=== PATIENT | female | born 2000 | race Caucasian/White ===

== ENCOUNTER 2019-02-21 20:15 | Emergency (ER) | payer BC ==
--- NOTE | 2019-02-21 22:53 | ER Document Report ---
ED General - General Chief Complaint: Abdominal Pain Stated Complaint: STOMACH PAIN Time Seen by Provider: 02/21/19 22:46 Mode of Arrival: Ambulatory Information source: Patient, Relative Notes: 19-year-old female with history of constipation presents with left lower quadrant abdominal pain that started 1 day prior to arrival. Patient describes the pain is intermittent, sharp, cramping. Patient denies any associated fever, chills, nausea, vomiting, dysuria, urinary frequency, hematuria, vaginal discharge. Patient reports that she took a laxative yesterday and had a bowel movement which she states was nonbloody or black. Patient's last menstrual period was January 27, 2019. She does currently take control pill. - HPI Onset: Yesterday Onset/Duration: Gradual, Persistent Quality of pain: Achy, Sharp Severity: Mild Pain Level: 1 Associated symptoms: denies: Chest pain, Nonproductive cough, Productive cough, Fever, Nausea, Vomiting, Shortness of breath Exacerbated by: Denies Relieved by: Denies Similar symptoms previously: Yes Recently seen / treated by doctor: No - Related Data Allergies/Adverse Reactions: No Known Allergies Allergy (Unverified 02/21/19 20:23) Past Medical History - General Information source: Patient - Social History Smoking Status: Never Smoker Frequency of alcohol use: None Drug Abuse: None Lives with: Spouse/Significant other Family History: Reviewed & Not Pertinent Patient has suicidal ideation: No Patient has homicidal ideation: No - Medical History Medical History: Negative Renal/ Medical History: Denies: Hx Peritoneal Dialysis Past Surgical History: Reports: Hx Tonsillectomy Review of Systems - Review of Systems Notes: REVIEW OF SYSTEMS: CONSTITUTIONAL : Denies fever, chills, or sweats. Denies recent illness. Denies weight loss, recent hospitalizations. EENT: Denies visual changes, eye pain. Denies sore throat, oral lesions, difficulty swallowing. CARDIOVASCULAR: Denies chest pain. Denies palpitations. Denies lower extremity edema. RESPIRATORY: Denies cough. Denies shortness of breath, wheezing. GASTROINTESTINAL: + abdominal pain denies distention. Denies nausea, vomiting, or diarrhea. Denies blood in vomitus, stools, or per rectum. Denies black, tarry stools. + constipation. GENITOURINARY: Denies difficulty urinating, painful urination, frequency, blood in urine, or vaginal discharge. MUSCULOSKELETAL: Denies back or neck pain or stiffness. Denies joint pain or swelling. SKIN: Denies rash, lesions or sores. HEMATOLOGIC : Denies easy bruising or bleeding. LYMPHATIC: Denies swollen glands. NEUROLOGICAL: Denies confusion or altered mental status. Denies loss of consciousness. Denies dizziness or lightheadedness. Denies headache. Denies weakness or paralysis. Denies problems difficulty with ambulation, slurred speech. Denies sensory loss, numbness, or tingling. Denies seizures. PSYCHIATRIC: Denies anxiety or stress. Denies depression, suicidal ideation, or homicidal ideation. Denies visual or auditory hallucinations. Physical Exam - Vital signs Vitals: Temp Pulse Resp BP Pulse Ox 98.1 F 100 18 123/85 98 02/21/19 20:34 02/21/19 20:34 02/21/19 20:34 02/21/19 20:34 02/21/19 20:34 - Notes Notes: PHYSICAL EXAMINATION: GENERAL: Well-appearing, well-nourished and in no acute distress. HEAD: Atraumatic, normocephalic. EYES: Pupils equal round and reactive to light, extraocular movements intact, conjunctiva are normal. ENT: Nares patent, oropharynx clear without exudates. Moist mucous membranes. NECK: Normal range of motion, supple without lymphadenopathy LUNGS: Breath sounds clear to auscultation bilaterally and equal. No wheezes rales or rhonchi. HEART: Regular rate and rhythm without murmurs ABDOMEN: Soft, nontender, nondistended abdomen. No guarding, no rebound. No masses appreciated. Female : deferred Musculoskeletal: Normal range of motion, no pitting or edema. No cyanosis. NEUROLOGICAL: Cranial nerves grossly intact. Normal speech, normal gait. Normal sensory, motor exams PSYCH: Normal mood, normal affect. SKIN: Warm, Dry, normal turgor, no rashes or lesions noted. Course - Re-evaluation Re-evalutation: Temp Pulse Resp BP Pulse Ox 98.1 F 100 18 123/85 98 02/21/19 20:34 02/21/19 20:34 02/21/19 20:34 02/21/19 20:34 02/21/19 20:02/21/19 22:52 19-year-old female presents with complaint of left lower quadrant abdominal pain that started 1 day prior to arrival. Vital signs reviewed and within normal limits. Patient is afebrile, normotensive and not hypoxic. Patient does not a ppear toxic or dehydrated. She is in no acute distress. Patient has a benign abdominal exam and pain is not reproducible with palpation. Because of the patient's history of constipation KUB was be obtained. 02/21/19 23:31 Patient presents with symptoms consistent with an acute cystitis. Vitals wnl. No history of fever, flank pain, or constitution symptoms to suggest ascending infection at this time. Patient is well in appearance, tolerating oral intake without difficulty. No focal abdominal tenderness to suggest acute appendicitis, biliary pathology, acute pancreatitis, tubo-ovarian abscesses, or pelvic inflammatory disease. Patient will be started on antibiotics at this time. A culture has been sent. They will be discharged with return precautions and follow-up recommendations. Presentation of a very well-appearing female in no acute distress. Abdominal exam is completely benign without any focal right lower quadrant or right upper quadrant abdominal tenderness. She is tolerating oral intake without difficulty and does not appear clinically dehydrated on examination. I do not suspect an acute appendicitis, bowel obstruction, diverticulitis. Patient provide a history consistent with constipation. Patient will be started on MiraLAX at increasing doses and recommended to follow closely with their primary care physician. Return precautions have been discussed at length with the patient Patient was evaluated and treated as appropriate for the patient's presenting sy mptoms and complaint, with consideration of any critical or life threatening conditions that may be associated with their obtained history and exam as noted above. All results were discussed with patient and her who is at the bedside. Patient provided the opportunity to ask questions, and express concerns. Patient was educated on treatments based on their presumed diagnosis as noted above. At this time we will discharge the patient with return precautions and follow-up recommendations. Verbal discharge instructions given a the bedside. Medication warnings reviewed. Patient is in agreement with this plan and has verbalized understanding of return precautions. After careful consideration I feel that that patient can be safely discharged from the emergency department, they were advised to followup with a primary care physician in 2-3 days. Dictation on this chart was performed using voice recognition software and may result in unintended grammatical, spelling, syntax or errors. . - Vital Signs Vital signs: Temp Pulse Resp BP Pulse Ox 98.1 F 100 18 123/85 98 07/28/19 20:34 02/21/19 20:34 02/21/19 20:34 02/21/19 20:34 02/21/19 20:34 - Laboratory Result Diagrams: 02/21/19 23:06 02/21/19 23:06 Laboratory results interpreted by me: 02/21/19 02/21/19 22:44 23:06 WBC 12.7 H Lymphocytes % 11.4 L Absolute Neutrophils 9.7 H Urine Protein 100 H Urine Blood MODERATE H Ur Leukocyte Esterase MODERATE H Discharge - Discharge Clinical Impression: Urinary tract infection Qualifiers: Urinary tract infection type: acute cystitis Hematuria presence: with hematuria Qualified Code(s): N30.01 - Acute cystitis with hematuria Constipation Qualifiers: Constipation type: unspecified constipation type Qualified Code(s): K59.00 - Constipation, unspecified Abdominal pain Qualifiers: Abdominal location: left lower quadrant Qualified Code(s): R10.32 - Left lower quadrant pain Condition: Good Disposition: HOME, SELF-CARE Instructions: Abdominal Pain ([facility]), Bulk Laxatives, Cephalexin ([facility]), Urinary Tract Infection ([facility]) Additional Instructions: Your urine shows findings consistent with a urinary tract infection. Please take all the antibiotics as directed even if your symptoms have improved. Please follow-up with your primary care physician as needed. Return to emergency room if you develop fever >101F, persistent vomiting, become lethargic, have severe pain in your sides, or any other symptoms that are concerning to you. Recommendations: It is recommended to followup with a primary care doctor within the next 2 days. If you do not have a primary care doctor or you are unable to get an apointment during that time, I left the number for some internal medicine physicians that are affiliated with this [facility]. Dr. Jasmyn Malcolm [address], [place] [address] [phone] Dr Kingsley Address: [address] [place] [address] [place] [address] Dr Anthony Address: [address] [place] [address] , [place] [id number] Prescriptions: Cephalexin Monohydrate [Keflex 500 mg Capsule] 500 mg PO BID 7 Days #14 capsule Na Phos,M-B/Na Phos,Di-Ba [Fleet Enema (Adult) 133 ml] 1 applic FL DAILYP PRN #5 enema PRN Reason:
[2019-02-21 23:07] LABS: AMORPHOUS SEDIMENT,URINE TRACE /HPF; APPEARANCE,URINE CLOUDY; BILIRUBIN,URINE NEGATIVE (NEGATIVE); COLOR,URINE YELLOW; GLUCOSE, URINE NEGATIVE (NEGATIVE); KETONES,URINE NEGATIVE (NEGATIVE); LEUKOCYTE ESTERASE,URINE MODERATE (NEGATIVE); NITRITE,URINE NEGATIVE (NEGATIVE); PROTEIN,URINE 100 mg/dL (NEGATIVE); URINE SPECIFIC GRAVITY 1.012; UROBILINOGEN,URINE NEGATIVE mg/dL (<2.0)
[2019-02-21 23:17] LABS: ABSOLUTE BASOPHILS # (AUTO) 0.1 10^3/uL (0.0-0.2); ABSOLUTE LYMPHOCYTES (AUTO) 1.4 10^3/uL (0.5-4.7); ABSOLUTE MONOCYTES (AUTO) 1.4 10^3/uL (0.1-1.4); ABSOLUTE NEUT (AUTO) 9.7 10^3/uL (1.7-8.2); BASOPHILS % (AUTO) 0.5 % (0-2); EOSINOPHILS % (AUTO) 0.2 % (0-6); HEMATOCRIT 41.2 % (36.0-47.0); LYMPHOCYTES % (AUTO) 11.4 % (13-45); MEAN CORPUSCULAR HEMOGLOBIN 30.5 pg (27.0-33.4); MEAN CORPUSCULAR VOLUME 90 fl (80-97); MONOCYTES % (AUTO) 11.2 % (3-13); PLATELET COUNT 210 10^3/uL (150-450); SEGMENTED NEUTROPHILS % (AUTO) 76.7 % (42-78); TOTAL CELLS COUNTED % (AUTO) 100 %; WHITE BLOOD COUNT 12.7 10^3/uL (4.0-10.5)
[2019-02-21] MEDS ORDERED: MAGNESIUM CITRATE 296 ML BOTTLE PO ONE (23:30)
[2019-02-21] MEDS ORDERED: CEPHALEXIN 500 MG CAPSULE PO ONE (23:30)
[2019-02-21] MEDS ORDERED: ONDANSETRON 4 MG TAB.RAPDIS PO ONE (23:35)
[2019-02-21] MEDS ORDERED: IBUPROFEN 600 MG TABLET PO ONE (23:35)
--- NOTE | 2019-02-21 23:36 | RADIOLOGY REPORT (SQ) ---
EXAM DESCRIPTION: XR ABDOMEN 1 VIEW (KUB) COMPLETED DATE/TME: 02/21/2019 22:50 CLINICAL HISTORY: 19 years, Female, abd pain h/o constipation COMPARISON: None. NUMBER OF VIEWS: 1 TECHNIQUE: AP abdomen LIMITATIONS: None. FINDINGS: Large amount gas and stool throughout colon. Levoconvex scoliosis lumbar spine. Gas pattern is nonspecific IMPRESSION: Abundant gas and stool in the colon copyright 2010 [employer]- All Rights Reserved
[2019-02-21 23:49] VITALS: BP 103/63
[2019-02-21 23:50] LABS: ALANINE AMINOTRANSFERASE 16 U/L (9-52); ALBUMIN 4.1 g/dL (3.5-5.0); ALKALINE PHOSPHATASE 50 U/L (38-126); ANION GAP 13 (5-19); ASPARTATE AMINO TRANSFERASE 14 U/L (14-36); BILIRUBIN,DIRECT 0.3 mg/dL (0.0-0.4); BLOOD UREA NITROGEN 15 mg/dL (7-20); CALCIUM 9.3 mg/dL (8.4-10.2); CARBON DIOXIDE 23 mmol/L (22-30); CHLORIDE 104 mmol/L (98-107); GLUCOSE 80 mg/dL (75-110); TOTAL PROTEIN 6.7 g/dL (6.3-8.2)
[2019-02-21] MEDS ORDERED: CEFTRIAXONE 1 GM/D5W RTU 1 GM/50 ML RTUPB IV ONE (23:59)
== END 2019-02-21 23:52 | disposition home or self-care (01) ==
LOC: ER 20:15
DX: N30.01 Acute cystitis with hematuria (principal); R10.32 Left lower quadrant pain; K59.00 Constipation, unspecified; Z79.3 Long term (current) use of hormonal contraceptives
CPT/HCPCS: 99284; 36415; 83690; 85025; 81025; 80053; 81001; 74018; J3490; S0119